=== PATIENT | male | born 1995 | race Caucasian/White ===

== ENCOUNTER 2018-03-22 10:19 | Outpatient (CLI) | payer BC, OTHER ==
--- NOTE | 2018-03-22 11:51 | RAD ---
ABDOMEN 1 VIEW: Date: 03/22/18 HISTORY: M54.9. Right sided abdominal pain. COMPARISON: None. FINDINGS: Low grade levoscoliosis. No abnormal calcifications projecting over the renal shadows. No dilated loo ps of large or small bowel. 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 IMPRESSION: No acute abnormality in the abdomen. POS: LEXIS
--- NOTE | 2018-03-22 12:15 | RAD ---
THORACIC SPINE 3 VIEWS: HISTORY: M54.6. COMPARISON: MRI lumbar spine 12/08/2016. FINDINGS: No acute fracture or malalignment. Chronic-appearing anterior height loss of multiple mid thoracic v ertebral bodies. Multiple superior inferior end plate deformities. There is height loss of the T8 and T9 vertebral bodies. 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 Findings are relatively simila r. POS: BARRY
== END 2018-03-22 10:20 | disposition home or self-care (01) ==
LOC: SCSRAD 10:19
PROVIDERS: ATTEND Family Medicine
DX: M54.6 Pain in thoracic spine (principal); M54.9 Dorsalgia, unspecified; M48.54XA Collapsed vertebra, not elsewhere classified, thoracic region, initial encounter for fracture
CPT/HCPCS: 72072; 74018

== ENCOUNTER 2018-03-24 11:54 | Emergency (ER) | payer BC, OTHER ==
[2018-03-24] MEDS ORDERED: Morphine 4 MG/ML VIAL ONE (12:18)
[2018-03-24] MEDS ORDERED: Ketorolac Tromethamine 30 MG/ML VIAL ONE (12:18)
[2018-03-24 12:30] LABS: #Basophils 0.1 thou/uL (0.0-0.2); #Eosinphils 0.2 thou/uL (0.0-0.7); #Monocytes 0.4 thou/uL (0.11-0.59); #Neutrophils 2.7 thou/uL (1.40-6.50); %Monocytes 7.4 % (0.0-10.0); %Neutrophils 50.5 % (42.0-75.0); Hemoglobin 16.2 g/dL (14.0-18.0); Mean Corpuscular HGB CONC 33.1 g/dL (32.0-36.0); Mean Corpuscular Hemoglobin 29.9 pg (27.0-31.0); Mean Corpuscular Volume 90.6 fL (78.0-98.0); Mean Platelet Volume 6.4 fL (7.4-10.4); Platelet Count 278 thou/uL (130-400); RBC Distribution Width 11.4 % (11.5-14.5); White Blood Cell (WBC) Count 5.3 thou/uL (4.8-10.8)
[2018-03-24 12:51] LABS: Bilirubin Negative (Negative); Blood, Urine Negative (Negative); Clarity CLEAR (Clear); Glucose, Urine (Dipstick) Negative (Negative); Leukocyte Negative (Negative); Nitrite Negative (Negative); Protein, Urine (Dipstick) Negative (Neg-Trace); Specific Gravity, Urine 1.011 (1.002-1.036)
[2018-03-24 13:01] LABS: Albumin 4.8 g/dL (3.5-5.0)
[2018-03-24 13:02] LABS: Calcium 9.8 mg/dL (7.8-10.44); Chloride 104 mmol/L (98-107); Potassium 4.4 mmol/L (3.5-5.1); Sodium 138 mmol/L (136-145)
[2018-03-24 13:04] LABS: Globulin 3.1 g/dL (2.4-3.5); Protein, Total 7.9 g/dL (6.0-8.3)
[2018-03-24 13:05] LABS: Bilirubin, Total 0.7 mg/dL (0.2-1.2); Carbon Dioxide 28 mmol/L (22-29)
[2018-03-24 13:06] LABS: Alkaline Phosphatase 60 U/L (40-150)
[2018-03-24 13:07] LABS: BUN (Urea Nitrogen) 10 mg/dL (8.9-20.6); Calc. Creatinine Clearance 0 mL/min (70-130); Estimated GFR-MDRD Greater than 90
[2018-03-24 13:08] LABS: AST (SGOT) 18 U/L (5-34)
[2018-03-24 13:09] LABS: ALT (SGPT) 24 U/L (8-55)
[2018-03-24 13:15] LABS: Glucose 46 mg/dL (70-105)
[2018-03-24 13:16] LABS: Anion Gap 10 mmol/L (10-20)
--- NOTE | 2018-03-24 13:46 | CT ---
CT ABDOMEN AND PELVIS WITHOUT CONTRAST: Date: 03/24/18 PROVIDED CLINICAL HISTORY: Flank and abdominal pain. FINDINGS: Comparison made with the study dated 01/29/15. The visualized lung bases are free of significant opacity. The solid abdominal organs are suboptimally evaluated in the absence of IV contrast, but demonstrate an unremarkable unenhanced CT appearance. There is no evidence for urinary tract calculi or hydroneph rosis. There is no bowel dilatation, inflammatory fat stranding, free fluid, or free air apparent. The appen jorge appears normal. There is conspicuous colonic fecal retention suggesting constipation. The osseous structures demonstrate no concerning osteoblastic or osteolytic lesions. IMPRESSION: 1. No evidence for urinary tract calculi or hydronephrosis. 2. Conspicuous colonic fecal retention, which may reflect constipation. POS: ASTRID
== END 2018-03-24 13:54 | disposition home or self-care (01) ==
LOC: ERS 11:54
DX: K59.00 Constipation, unspecified (principal); R10.11 Right upper quadrant pain; R10.31 Right lower quadrant pain
CPT/HCPCS: 74176; 80053; 81003; 85025; 87086; 96361; 96374; 96375; J1885; J2270